=== PATIENT | male | born 1960 | race African-American/Black ===

== ENCOUNTER → 2016-12-04 | Outpatient (CLI) | payer OTHER ==
--- NOTE | ~2016-12-04 | CR169 ---
[facility] A Service of [facility] RADIOLOGY TEXT RESULTS PATIENT: ALICIA URIBE LOCATION: [facility] : 60 UNIT #: [id number] AGE: [address]: RUCHI DUARTE SEX: M ORDER DR: [id number] [facility] [address] [place], [place] [address] [id number] O MR#: [id number] Acc #: [id number] NAME: ALICIA URIBE : 1960 SEX: M STUDY DATE/TIME: 12/04/2016 14:47 UNIT: [facility] ROOM: STUDY DESCRIPTION: CR Knee 2 Views Lt Attending Physician: Ruchi Duarte Aprn Referring Physician: Ruchi Duarte Aprn Ordering Physician: Ruchi Duarte Aprn Primary Care Physician: Primary Care Physician No MEDICAL IMAGING REPORT This report is preliminary unless electronic signature is present EXAM 2 views left knee. DATE: 12/04/2016 HISTORY 56-year-old male with left knee pain and swelling for 1 week. No known injury. COMPARISON None. FINDINGS There is marked enthesophyte formation at the quadriceps and patellar tendon insertions upon the anterior patella with prepatellar and infrapatellar soft tissue swelling anteriorly. There is chronic-appearing fragmentation of the bony protuberance of the left anterior tibial tubercle may represent sequelae on [place]-Schlatter's. There is prominent posterior-inferior osteophyte formation. Mild medial compartment joint space narrowing. Small lateral femoral condylar marginal osteophyte formation. IMPRESSION 1. Fragmentation of the anterior tibial tubercle may represent sequelae of old [place]-Schlatter's disease. 2. Mild prepatellar and infrapatellar soft tissue swelling anteriorly. 3. Mild tricompartment degenerative changes, greatest in the patellofemoral compartment. 4. No acute fracture or dislocation. Dictated by... [facility] A Service of [facility] RADIOLOGY TEXT RESULTS PATIENT: ALICIA URIBE LOCATION: [facility] : 60 UNIT #: [id number] AGE: [address]: RUCHI DUARTE SEX: M ORDER DR: Carlene Montauge M.D. THIS IS AN ELECTRONICALLY VERIFIED REPORT Carlene Montague M.D. at 12/05/2016 8:56 AM EDDI/west TD: 12/05/2016 04:12 JOB #: [id number] MEDICAL IMAGING REPORT Page 1 of 1 COPY
== END | disposition home or self-care (01) ==
LOC: CRAD 14:22
DX: M25.562 Pain in left knee (principal); M79.89 Other specified soft tissue disorders; M17.12 Unilateral primary osteoarthritis, left knee
CPT/HCPCS: 73560